=== PATIENT | female | born 1955 | race Caucasian/White ===

== ENCOUNTER 2020-12-31 18:24 | Emergency (ER) | payer MEDICARE, OTHER ==
[~2020-12-31] VITALS: Ht 167.6 cm; Wt 74.8 kg
[~2020-12-31 18:24] MED LIST: ACET325T53 PO; ALLA266C2 TP; AMIO200T5 PO; ATOR10TA PO; RIVA10TA PO
[2020-12-31 18:54] VITALS: BP 119/92
[2020-12-31] MEDS ORDERED: CEFTRIAXONE 1 G VIAL IM ONE (19:00)
[2020-12-31] MEDS ORDERED: LIDOCAINE /MPF 1% VIAL 5 ML VIAL ONE (19:01)
[2020-12-31] MEDS ORDERED: CEFTRIAXONE 1 G VIAL ONE (19:01)
[2020-12-31] MEDS ORDERED: CEPH500C2 PO (19:07)
--- NOTE | 2020-12-31 19:35 | NUR ---
Patient discharged to home in stable condition. Written and verbal after care instructions given. Patient verbalizes understanding of instruction.pT ambulatory with a steady gait
== END 2020-12-31 19:35 | disposition home or self-care (01) ==
LOC: ER 18:26
DX: L03.116 Cellulitis of left lower limb (principal); T63.481A Toxic effect of venom of other arthropod, accidental (unintentional), initial encounter; I48.91 Unspecified atrial fibrillation; Z98.890 Other specified postprocedural states; Z79.899 Other long term (current) drug therapy; Y92.89 Other specified places as the place of occurrence of the external cause
CPT/HCPCS: 96372; 99283; J0696; J3490

== ENCOUNTER 2022-01-01 10:32 | Emergency (ER) | payer MEDICARE, OTHER ==
[~2022-01-01] VITALS: Ht 167.6 cm; Wt 74.8 kg
[~2022-01-01 10:32] MED LIST changes: +CEPH500C2 PO
[2022-01-01] MEDS ORDERED: IBUPROFEN 600 MG TABLET PO ONE (11:30)
[2022-01-01] MEDS ORDERED: ACETAMINOPHEN 325 MG TABLET PO ONE (11:30)
--- NOTE | 2022-01-01 11:35 | NUR ---
THE PATIENT BIBS FOR C/O RIGHT KNEE PAIN 08/13 X 2 DAYS,NO TRAUMA. NO APPARENT DEFORMITY NOTED. IN ROOM AIR AND DENIES SOB. RESPIRATION REGULAR AND UNLABORED. WILL CONTINUE TO MONITOR THE PATIENT.
--- NOTE | 2022-01-01 11:39 | NUR ---
SENIOR SALES OPERATIONS MANAGER AT BEDSIDE
[2022-01-01] MEDS ORDERED: ACETAMINOPHEN 325 MG TABLET ONE (11:41)
[2022-01-01] MEDS ORDERED: IBUPROFEN 600 MG TABLET ONE (11:41)
--- NOTE | 2022-01-01 12:21 | NUR ---
Patient discharged to home in stable condition. Written and verbal after care instructions given. Patient verbalizes understanding of instruction.
[2022-01-01 12:22] VITALS: BP 126/72
== END 2022-01-01 12:23 | disposition home or self-care (01) ==
LOC: ER 10:39
DX: M25.561 Pain in right knee (principal); I48.91 Unspecified atrial fibrillation; Z98.890 Other specified postprocedural states; Z79.899 Other long term (current) drug therapy
CPT/HCPCS: 73564-TC

== ENCOUNTER 2022-02-23 08:59 | Outpatient (CLI) | payer MEDICARE, OTHER ==
[2022-02-23 09:53] LABS: BASOPHILS % (AUTO) 0.3 % (0.0-2.0); EOSINOPHILS % (AUTO) 3.6 % (0.0-6.0); HEMATOCRIT 37 % (33-45); HEMOGLOBIN 12.3 g/dL (11.5-14.8); LYMPHOCYTES # (AUTO) 2.1 K/uL (0.8-4.8); LYMPHOCYTES % (AUTO) 37.8 % (20.0-44.0); MEAN CORPUSCULAR HGB CONC 34 g/dl (31.0-36.0); MEAN CORPUSCULAR VOLUME 94 fL (82-100); MONOCYTES # (AUTO) 0.6 K/uL (0.1-1.30); MONOCYTES % (AUTO) 10.8 % (2.0-12.0); NEUTROPHILS # (AUTO) 2.7 K/uL (1.8-8.9); NEUTROPHILS % (AUTO) 47.5 % (43.0-81.0); PLATELET COUNT (AUTO) 157 K/uL (150-450); WHITE BLOOD COUNT (AUTO) 5.7 K/uL (4.3-11.0)
[2022-02-23 10:49] LABS: ALBUMIN 4.1 g/dL (3.4-5.0); BILIRUBIN,TOTAL 0.7 mg/dL (0.2-1.0); CALCIUM, SERUM 8.5 mg/dL (8.5-10.1); CREATININE 0.8 mg/dL (0.6-1.3); POTASSIUM 4.1 mmol/L (3.5-5.1); TOTAL PROTEIN, SERUM 7.9 g/dL (6.4-8.2)
[2022-02-23 10:54] LABS: THYROID STIMULATING HORMONE 1.805 uIU/mL (0.358-3.74)
== END 2022-02-23 23:59 | disposition home or self-care (01) ==
LOC: LAB 08:59
PROVIDERS: ATTEND Internal Medicine Interventional Cardiology
DX: I10 Essential (primary) hypertension (principal); E55.9 Vitamin D deficiency, unspecified; E78.5 Hyperlipidemia, unspecified; E03.9 Hypothyroidism, unspecified; R53.83 Other fatigue; Z79.899 Other long term (current) drug therapy
CPT/HCPCS: 36415; 80053-TC; 80061-TC; 82306; 84439-TC; 84443-TC; 85025-TC